=== PATIENT | female | born 1935 | race Caucasian/White ===

== ENCOUNTER 2021-05-31 01:11 | Emergency (ER) | payer OTHER, MEDICAID ==
[~2021-05-31] VITALS: Ht 157.5 cm; Wt 49.0 kg
[2021-05-31 01:15] VITALS: BP_SYST 187
--- NOTE | 2021-05-31 01:15 | NUR ---
Pt to bed 5 for evaluation.
--- NOTE | 2021-05-31 01:29 | NUR ---
Patient AAOx4 and ambulatory c/o worsening cough and congestion that she has had x6 weeks. history of COPD, A-fib, high cholestrol. pt has been taking cough medication with some relief, but worsened tonight. denies any sob or chest pain. vss.
--- NOTE | 2021-05-31 01:32 | NUR ---
ER Dr. BAJWA at bedside examining patient.
--- NOTE | 2021-05-31 01:36 | NUR ---
Blood for labwork drawn. Patient tolerated WELL.
--- NOTE | 2021-05-31 01:42 | NUR ---
PORTABLE XRAY AT BEDSIDE COMPLETED.
[2021-05-31] MEDS ORDERED: DEXAMETHASONE SOD PHOSPHATE 10 MG/ML VIAL IVP ONE (02:15)
[2021-05-31 02:29] LABS: ANION GAP 9 (5-15); BASOPHILS % (AUTO) 0.6 % (0.0-2.0); CALCIUM 8.9 mg/dL (8.4-11.0); CHLORIDE 101 mmol/L (98-107); CREATININE 0.81 mg/dL (0.55-1.30); EOSINOPHILS # (AUTO) 0.5 K/uL (0.0-0.4); EOSINOPHILS % (AUTO) 7.6 % (0.0-4.0); GLUCOSE 135 mg/dL (70-99); HEMATOCRIT 41.1 % (36-48); HEMOGLOBIN 14.2 g/dL (12.0-16.0); LYMPHOCYTES # (AUTO) 1.7 K/uL (1.0-5.5); LYMPHOCYTES % (AUTO) 28.2 % (20.5-51.5); MEAN CORPUSCULAR HEMOGLOBIN 32 pg (27-31); MEAN CORPUSCULAR HGB CONC 35 % (32-36); MEAN CORPUSCULAR VOLUME 91 fL (79.0-98.0); MONOCYTES # (AUTO) 0.5 K/uL (0.0-1.0); MONOCYTES % (AUTO) 8.6 % (1.7-9.3); NEUTROPHILS # (AUTO) 3.3 K/uL (1.8-7.7); PLATELET COUNT (AUTO) 189 K/uL (130-430); RED BLOOD CELL COUNT(AUTO) 4.51 MIL/uL (4.2-6.2); RED CELL DISTRIBUTION WIDTH 13.9 % (9.0-15.0); SODIUM SERUM 139 mmol/L (136-145); UREA NITROGEN, BLOOD 13 mg/dL (8-21)
[2021-05-31] MEDS ORDERED: AZITHROMYCIN 500 MG in NS 250 ML IV ONE (02:30)
[2021-05-31] MEDS ORDERED: cefTRIAXone 1 GM in D5W 50 ML IV ONE (02:30)
--- NOTE | 2021-05-31 02:30 | NUR ---
# 20 gauge angiocath placed to RIGHT FA. Use of asceptic technique. Opsite placed over site. Blood return noted. Flushed with 10 cc of normal saline. No evidence of infiltration noted. Patient tolerated well.
[2021-05-31 02:37] LABS: ALANINE AMINOTRANSFERASE 25 U/L (12-78); ALBUMIN 3.8 g/dL (3.4-4.8); ASPARTATE AMINOTRANSFERASE 31 U/L (10-37); TOTAL BILIRUBIN 0.5 mg/dL (0.0-1.0)
[2021-05-31] MEDS ORDERED: cefTRIAXone 1 GM VIAL ONE (02:44)
[2021-05-31] MEDS ORDERED: AZITHROMYCIN 500 MG/VIAL (ZITHROMAX) IV ONE ×2 (02:44)
[2021-05-31] MEDS ORDERED: IPRATROPIUM BROM 0.5 MG/2.5 ML VIAL.NEB (ATROVENT) INH ONE ×2 (03:30→03:35)
[2021-05-31] MEDS ORDERED: ALBUTEROL SULFATE 0.083% 2.5 MG/3 ML VIAL.NEB INH ONE (03:30)
--- NOTE | 2021-05-31 03:40 | NUR ---
RT AT BEDISDE FOR BREATHING TX INITIATED.
[2021-05-31] MEDS ORDERED: POTASSIUM CHLORIDE 20 MEQ TAB.PRT.SR ONE (04:57)
[2021-05-31] MEDS ORDERED: POTASSIUM CHLORIDE 20 MEQ TAB.PRT.SR PO ONE (05:00)
--- NOTE | 2021-05-31 05:00 | NUR ---
DR. BAJWA AT BEDSIDE FOR RE-EVALUATION.
--- NOTE | 2021-05-31 05:26 | NUR ---
PT TOLERATED AMBULATION WELL. STATED HAVING NO SOB. OXYGEN SATURATION AT 93% ON ROOM AIR AFTER AMBULATION. HR 87.
[2021-05-31] MEDS ORDERED: GUAI120L56 PO (05:31)
[2021-05-31] MEDS ORDERED: CLAR250T12 PO (05:31)
[2021-05-31] MEDS ORDERED: AMOX-426 PO (05:31)
[2021-05-31] MEDS ORDERED: ALBU8.5H8 INH (05:31)
[2021-05-31] MEDS ORDERED: PRELO PO (05:31)
[2021-05-31 05:39] VITALS: BP_SYST 127
--- NOTE | 2021-05-31 05:40 | NUR ---
Patient given written and verbal discharge instructions and verbalizes understanding. DR.D'AGOSTINO EN PALACIOS discussed with patient the results and treatment provided. Patient in stable condition. ID arm band removed. IV catheter removed intact and dressing applied, no active bleeding. Rx of ALBUTEROL,AUGMENTIN, BIAXIN, GUAIFENESIN, PRELONE given. Patient educated on pain management and to follow up with PMD. Pain Scale 0/10. Opportunity for questions provided and answered. Medication side effect fact sheet provided.
== END 2021-05-31 05:39 | disposition home or self-care (01) ==
LOC: SED 01:11
DX: J44.1 Chronic obstructive pulmonary disease with (acute) exacerbation (principal); J18.9 Pneumonia, unspecified organism; I48.91 Unspecified atrial fibrillation; Z20.822 Contact with and (suspected) exposure to COVID-19; Z88.1 Allergy status to other antibiotic agents
CPT/HCPCS: 36415; 71045; 80053; 81002; 83880; 84484; 85025; 87426; 93005; 94640; 96365; 96368; 96375; 99291; J0456; J0696; J1100; J7613